=== PATIENT | female | born 2000 | race Caucasian/White ===

== ENCOUNTER 2019-02-12 23:32 | Emergency (ER) | payer MEDICAID ==
[~2019-02-12] VITALS: Ht 149.9 cm; Wt 73.9 kg
[2019-02-12 23:35] VITALS: BP 130/77
--- NOTE | 2019-02-12 23:44 | NUR ---
AMBULATED TO ER BED 5
--- NOTE | 2019-02-12 23:45 | NUR ---
18F CC R LEG POSTERIOR THIGH CELLULITIS. DENIES PAIN. NKDA, NO HX. WILL CONTINUE TO MONITOR.
--- NOTE | 2019-02-12 23:48 | NUR ---
[facility]ello in [facility] - 02/13/19 at 0119 by [email or web address] CC CELLULITIS R LEG POSTERIOR
[2019-02-13] MEDS ORDERED: CLINDAMYCIN 600 MG/4 ML VIAL IM ONE
[2019-02-13] MEDS ORDERED: KETOROLAC 60 MG/2 ML VIAL IM ONE
--- NOTE | 2019-02-13 00:15 | NUR ---
Patient discharged with v/s stable. Written and verbal after care instructions given and explained. Patient alert, oriented and verbalized understanding of instructions. Ambulatory with steady gait. All questions addressed prior to discharge. ID band removed. Patient advised to follow up with PMD. Rx of MOTRIN, BACTRIM given. Patient educated on indication of medication including possible reaction and side effects. Opportunity to ask questions provided and answered.
[2019-02-13 00:22] VITALS: BP 130/77
== END 2019-02-13 00:15 | disposition home or self-care (01) ==
LOC: MED 23:32
DX: S70.362A Insect bite (nonvenomous), left thigh, initial encounter (principal); L03.116 Cellulitis of left lower limb; W57.XXXA Bitten or stung by nonvenomous insect and other nonvenomous arthropods, initial encounter; Y93.89 Activity, other specified; Y92.89 Other specified places as the place of occurrence of the external cause; Y99.8 Other external cause status
CPT/HCPCS: 96372; 99283; J1885; J3490

== ENCOUNTER 2019-02-26 14:38 | Emergency (ER) | payer MEDICAID ==
[~2019-02-26] VITALS: Ht 149.9 cm; Wt 75.9 kg
[2019-02-26 14:51] VITALS: BP 114/67
--- NOTE | 2019-02-26 15:24 | NUR ---
PT PRESENTS TO ED WITH C/O RIGHT ANKLE PAIN FOR APPROX 4 DAYS. DENIES INJURY/TRAUMA. GOOD CAP REFILL NOTED; PULSES PRESENT. LIMITED ROM TO AFFECTED FOOT OBSERVED. PT STATES PAIN IS 8/10 AT THIS TIME.
[2019-02-26] MEDS ORDERED: IBUPROFEN 400 MG TAB PO ONE (15:40)
[2019-02-26 16:37] VITALS: BP 111/68
--- NOTE | 2019-02-26 16:37 | NUR ---
Patient discharged with v/s stable. Written and verbal after care instructions given and explained. Patient alert, oriented and verbalized understanding of instructions. Wheel Chair Assisted with to car. All questions addressed prior to discharge. ID band removed. Patient advised to follow up with PMD. Rx of NAPROSYN given. Patient educated on indication of medication including possible reaction and side effects. Opportunity to ask questions provided and answered.
== END 2019-02-26 16:37 | disposition home or self-care (01) ==
LOC: MED 14:38
DX: S99.911A Unspecified injury of right ankle, initial encounter (principal); X58.XXXA Exposure to other specified factors, initial encounter; Y93.6A Activity, physical games generally associated with school recess, summer camp and children; Y92.833 Campsite as the place of occurrence of the external cause; Y99.8 Other external cause status
CPT/HCPCS: 73610; 99283; Q0092

== ENCOUNTER 2019-03-02 17:47 | Emergency (ER) | payer MEDICAID ==
[~2019-03-02] VITALS: Ht 149.9 cm; Wt 75.7 kg
[2019-03-02 17:48] VITALS: BP 129/86
[2019-03-02] MEDS: IBUPROFEN 800 MG TAB PO ONE (18:25)
== END 2019-03-02 18:43 | disposition home or self-care (01) ==
LOC: MED 17:47
DX: M76.61 Achilles tendinitis, right leg (principal)
CPT/HCPCS: 73610; 99283; Q0092